=== PATIENT | male | born 1990 | race Caucasian/White ===

== ENCOUNTER 2018-01-17 20:18 | Emergency (ER) | payer OTHER ==
[2018-01-17] MEDS ORDERED: Zofran 4 MG/2 ML VIAL IV ONE (20:35)
[2018-01-17] MEDS ORDERED: Sodium Chloride 0.9% 1000 ML 1,000 ML IV STA (20:35)
[2018-01-17] MEDS ORDERED: Pepcid 20 MG VIAL IV ONE ×2 (20:35→21:12)
--- NOTE | 2018-01-17 20:38 | ERPHSYRPT ---
- History of Present Illness Time Seen by Provider: 01/17/18 20:30 Historian: patient Exam Limitations: no limitations Patient Subjective Stated Complaint: pt states he has not had any alcohol to drink in approx 2 days and has had vomiting, dizziness, and shaking since yesterday. states he usually drinks at least 1/5 of vodka per day Triage Nursing Assessment: pt alert and oriented, answers questions approp. pt ambulatory with steady gait noted. respirations nonlabored with lungs cta. abd soft, nontender to light palpation. bowel sounds present x4 hyper Physician History: 27 y/o male comes to the ER after not drinking alcohol for the past 2 days. Pt has been having nausea, vomiting and feeling dizzy. Pt has not had a BM for the past 2 days. Pt also admits to having the shakes. Pt denies any fever, chills, diarrhea, chest pain or shortness of breath. Pt admits to using marijuana. Timing/Duration: today Activities at Onset: none Quality: aching Abdominal Pain Onset Location: generalized abdomen Pain Radiation: no radiation Severity of Pain-Max: none Severity of Pain-Current: none Modifying Factors: Improves With: nothing Associated Symptoms: nausea, vomiting Allergies/Adverse Reactions: No Known Drug Allergies Allergy (Verified 01/17/18 20:36) Hx Tetanus, Diphtheria Vaccination/Date Given: No Hx Influenza Vaccination/Date Given: No Hx Pneumococcal Vaccination/Date Given: No Immunizations Up to Date: No - Review of Systems Constitutional: No Fever, No Chills Eyes: No Symptoms Ears, Nose, & Throat: No Symptoms Respiratory: No Cough, No Dyspnea Cardiac: No Chest Pain, No Edema, No Syncope Abdominal/Gastrointestinal: Abdominal Pain, Nausea, Vomiting, Constipation, No Diarrhea Genitourinary Symptoms: No Dysuria Musculoskeletal: No Back Pain, No Neck Pain Skin: No Rash Neurological: No Dizziness, No Focal Weakness, No Sensory Changes Psychological: No Symptoms Endocrine: No Symptoms All Other Systems: Reviewed and Negative - Past Medical History Pertinent Past Medical History: No Neurological History: No Pertinent History ENT History: No Pertinent History Cardiac History: No Pertinent History Respiratory History: No Pertinent History Endocrine Medical History: No Pertinent History Musculoskeletal History: No Pertinent History GI Medical History: No Pertinent History History: No Pertinent History Psycho-Social History: No Pertinent History Male Reproductive Disorders: No Pertinent History - Social History Smoking Status: Current every day smoker How long have you smoked: 7 yrs Exposure to second hand smoke: Yes Drug Use: marijuana Patient Lives Alone: No - Nursing Vital Signs Nursing Vital Signs: Initial Vital Signs Temperature 98.0 F 01/17/18 20:25 Pulse Rate 69 01/17/18 20:25 Respiratory Rate 16 01/17/18 20:25 Blood Pressure 183/98 01/17/18 20:25 O2 Sat by Pulse Oximetry 98 01/17/18 20:25 Pain Scale Pain Intensity 0 - Physical Exam General Appearance: no apparent distress, alert Eye Exam: PERRL/EOMI, eyes nml inspection Ears, Nose, Throat Exam: normal ENT inspection, pharynx normal, moist mucous membranes Neck Exam: normal inspection, non-tender, supple, full range of motion Respiratory Exam: normal breath sounds, lungs clear, No respiratory distress Cardiovascular Exam: regular rate/rhythm, normal heart sounds Gastrointestinal/Abdomen Exam: soft, No tenderness, No mass Back Exam: normal inspection, normal range of motion, No CVA tenderness, No vertebral tenderness Extremity Exam: normal inspection, normal range of motion, pelvis stable Neurologic Exam: alert, oriented x 3, cooperative, normal mood/affect, nml cerebellar function, sensation nml, No motor deficits Skin Exam: normal color, warm, dry SpO2: 98 Oxygen Delivery: Room Air - Course Nursing assessment & vital signs reviewed: Yes Ordered Tests: Active Orders 24 hr Category Date Time Status IV Insertion STAT Care 01/17/18 20:35 Active NPO (ED) STAT Care 01/17/18 20:35 Active ABDOMEN 2 VIEW Stat Exams 01/17/18 21:20 Taken AMYLASE Stat Lab 01/17/18 20:35 Completed CBC W DIFF Stat Lab 01/17/18 20:35 Completed CMP Stat Lab 01/17/18 20:35 Completed LIPASE Stat Lab 01/17/18 20:35 Completed Medication Summary Generic Name Dose Route Start Last Admin Trade Name Freq PRN Reason Stop Dose Admin Meclizine HCl 25 mg 01/17/18 22:50 Antivert 25 Mg PO 01/17/18 22:51 STAT ONE Discontinued Medications Generic Name Dose Route Start Last Admin Trade Name Freq PRN Reason Stop Dose Admin Famotidine 20 mg 01/17/18 20:35 01/17/18 21:13 Pepcid 20 Mg Vial IV 01/17/18 20:36 20 mg STAT ONE Administration Famotidine Confirm 01/17/18 21:12 Pepcid 20 Mg Vial Administered 01/17/18 21:13 Dose 20 mg IV .STK-MED ONE Sodium Chloride 1,000 mls @ 999 mls/hr 01/17/18 20:35 01/17/18 22:21 Sodium Chloride 0.9% 1000 Ml IV 01/17/18 21:35 Infused .Q1H1M STA Infusion Sodium Chloride Confirm 01/17/18 21:12 Sodium Chloride 0.9% 1000 Ml Administered 01/17/18 21:13 Dose 1,000 mls @ ud .ROUTE .STK-MED ONE Ondansetron HCl 4 mg 01/17/18 20:35 01/17/18 21:14 Zofran 4 Mg/2 Ml Vial IV 01/17/18 20:36 4 mg STAT ONE Administration Ondansetron HCl Confirm 01/17/18 21:12 Zofran 4 Mg/2 Ml Vial Administered 01/17/18 21:13 Dose 4 mg .ROUTE .STK-MED ONE Lab/Rad Data: Laboratory Result Diagrams 01/17/18 20:35 01/17/18 20:35 Laboratory Results 01/17/18 01/17/18 Range/Units 20:35 20:35 WBC 9.5 (4.0-10.5) K/mm3 RBC 4.72 (4.1-5.6) M/mm3 Hgb 15.6 (12.5-18.0) gm/dl Hct 45.7 (42-50) % MCV 96.8 (78-100) fl MCH 33.1 H (26-32) pg MCHC 34.1 (32-36) g/dl RDW 12.9 (11.5-14.0) % Plt Count 298 (150-450) K/mm3 MPV 9.8 H (6-9.5) fl Gran % 84.0 H (36.0-66.0) % Eos # (Auto) 0.02 (0-0.5) Absolute Lymphs (auto) 0.88 L (1.0-4.6) Absolute Monos (auto) 0.58 (0.0-1.3) Lymphocytes % 9.3 L (24.0-44.0) % Monocytes % 6.1 (0.0-12.0) % Eosinophils % 0.2 (0.00-5.0) % Basophils % 0.4 (0.0-0.4) % Absolute Granulocytes 7.95 H (1.4-6.9) Basophils # 0.04 (0-0.4) Sodium 133 L (137-145) mmol/L Potassium 5.0 (3.5-5.1) mmol/L Chloride 92 L (98-107) mmol/L Carbon Dioxide 24 (22-30) mmol/L Anion Gap 21.6 H (5-15) MEQ/L BUN 16 (9-20) mg/dL Creatinine 0.69 (0.66-1.25) mg/dL Estimated GFR > 60.0 ML/MIN Glucose 153 H (74-106) mg/dL Calcium 9.9 (8.4-10.2) mg/dL Total Bilirubin 1.80 H (0.2-1.3) mg/dL AST 79 H (17-59) U/L ALT 38 (0-50) U/L Alkaline Phosphatase 56 (38-126) U/L Serum Total Protein 8.7 H (6.3-8.2) g/dL Albumin 5.6 H (3.5-5.0) g/dL Amylase 73 (30-110) U/L Lipase 52 (23-300) U/L - Progress Progress: improved Progress Note: 01/17/18 22:43 Pt feels better after receiving NS fluids and zofran. The labs are unremarkable. The abdominal x ray does not show any acute findings. The patient will be d/c home with zofran. - Departure Time of Disposition: 22:44 Departure Disposition: Home Clinical Impression: Dehydration Condition: Stable Critical Care Time: No Referrals: RAMAN FLORES MD [Primary Care Provider] - Instructions: Nausea -- Adult, Vomiting -- Adult, Dehydration, Adult (DC) Additional Instructions: Follow up with your primary care doctor if you should continue to have dizziness and vomiting. Increase your water intake. Prescriptions: Meclizine HCl 25 mg [Antivert 25 mg] 25 mg PO TID PRN #20 tablet PRN Reason: Dizziness Ondansetron [Zofran Odt] 4 mg PO QID PRN #15 tab.rapdis PRN Reason: Nausea/Vomiting
[2018-01-17] MEDS ORDERED: Sodium Chloride 0.9% 1000 ML 1,000 ML ONE (21:12)
[2018-01-17] MEDS ORDERED: Zofran 4 MG/2 ML VIAL ONE (21:12)
[2018-01-17 21:59] LABS: BASOPHIL % 0.4 % (0.0-0.4); Basophil (Absolute #) 0.04 (0-0.4); Eosinophil % 0.2 % (0.00-5.0); Eosinophil (Absolute #) 0.02 (0-0.5); Granulocyte Absolute (ANC) 7.95 (1.4-6.9); Hematocrit 45.7 % (42-50); Hemoglobin 15.6 gm/dl (12.5-18.0); Lymphocyte (Absolute #) 0.88 (1.0-4.6); Lymphocytes % 9.3 % (24.0-44.0); Mean Cell Volume 96.8 fl (78-100); Mean Corpuscular Hemoglobin 33.1 pg (26-32); Mean Corpuscular Hgb Concent. 34.1 g/dl (32-36); Mean Platelet Volume 9.8 fl (6-9.5); Monocyte (Absolute #) 0.58 (0.0-1.3); Monocytes % 6.1 % (0.0-12.0); Platelet Count 298 K/mm3 (150-450); Red Blood Count 4.72 M/mm3 (4.1-5.6); Red Cell Distribution Width 12.9 % (11.5-14.0); White Blood Count 9.5 K/mm3 (4.0-10.5)
[2018-01-17 22:11] VITALS: BP 135/78
[2018-01-17 22:23] LABS: ALBUMIN 5.6 g/dL (3.5-5.0); ALKALINE PHOSPHATASE 56 U/L (38-126); AMYLASE 73 U/L (30-110); ANION GAP 21.6 MEQ/L (5-15); BLOOD UREA NITROGEN 16 mg/dL (9-20); CHLORIDE 92 mmol/L (98-107); Calcium 9.9 mg/dL (8.4-10.2); Carbon Dioxide 24 mmol/L (22-30); Creatinine 1 0.69 mg/dL (0.66-1.25); Glucose 153 mg/dL (74-106); LIPASE 52 U/L (23-300); SGOT/AST 79 U/L (17-59); SGPT/ALT 38 U/L (0-50); SODIUM 133 mmol/L (137-145); Total Protein 8.7 g/dL (6.3-8.2)
[2018-01-17 22:47] VITALS: PULSE 65
[2018-01-17] MEDS ORDERED: ANTIVERT 25 MG PO ONE (22:50)
[2018-01-17 22:51] VITALS: O2SAT 98
[2018-01-17] MEDS ORDERED: ANTIVERT 25 MG ONE (22:51)
--- NOTE | 2018-01-18 09:11 | XRAY ---
Indication: Nausea and vomiting. Loss of appetite. Comparison: None 2 views of the abdomen nonacute and nonobstructed. Solid organs and osseous structures unremarkable. Lung bases clear. Impression: Negative abdomen.
== END 2018-01-17 22:58 | disposition home or self-care (01) ==
LOC: ED 20:18
DX: E86.0 Dehydration (principal); R10.84 Generalized abdominal pain; R11.2 Nausea with vomiting, unspecified; R42 Dizziness and giddiness; K59.00 Constipation, unspecified
CPT/HCPCS: 36000; 36415; 74021; 80053; 82150; 83690; 85025; 96360; 96374; 96375; 99284; J2405; A9270-GY